=== PATIENT | male | born 1955 | race Caucasian/White ===

== ENCOUNTER 2024-02-05 06:08 | Inpatient (IN) ==
--- NOTE | 2024-01-08 15:49 | PAT Medication Instructions ---
Medication Instructions Date of Service January 08, 2024 Home Medications albuterol sulfate 90 mcg/actuation breath activated powder inhaler,sensor (Proair Digihaler) 2 inh inhalation Q6H PRN shortness of breath ascorbic acid (vitamin C) 500 mg capsule 500 mg PO BID atorvastatin 40 mg tablet (Lipitor) 40 mg PO QPM buprenorphine 8 mg-naloxone 2 mg sublingual tablet 1 tab sublingual TID fluticasone furoate 200 mcg-vilanterol 25 mcg/dose inhalation powder (Breo Ellipta) 1 inh inhalation DAILY ipratropium 0.5 mg-albuterol 3 mg (2.5 mg base)/3 mL nebulization soln 3 ml inhalation Q6H PRN modafinil 200 mg tablet 200 mg PO BID pregabalin 100 mg capsule 100 mg PO TID calcium 600 mg (as carbonate)-vitamin D3 5 mcg (200 unit) capsule 1 cap PO QAM doxycycline hyclate 100 mg capsule 100 mg PO BID duloxetine 60 mg capsule,delayed release 60 mg PO BID furosemide 20 mg tablet 20 mg PO QAM memantine 10 mg tablet 10 mg PO BID metoprolol tartrate 50 mg tablet 50 mg PO BID omeprazole 20 mg capsule,delayed release 20 mg PO BID pregabalin 50 mg capsule 50 mg PO HS rivastigmine tartrate 1.5 mg capsule 1.5 mg PO BID tamsulosin 0.4 mg capsule 0.4 mg PO QPM torsemide 20 mg tablet 20 mg PO DAILY trazodone 50 mg tablet 150 mg PO HS venlafaxine 150 mg capsule,extended release 24 hr 150 mg PO QPM aspirin 325 mg tablet 325 mg PO QAM lutein 1 tab PO QAM potassium chloride 20 mEq tablet,extended release(part/cryst) 20 meq PO BID zinc 50 mg tablet 50 mg PO 3XWK Continue as directed buprenorphine 8 mg-naloxone 2 mg sublingual tablet 1 tab sublingual TID fluticasone furoate 200 mcg-vilanterol 25 mcg/dose inhalation powder (Breo Ellipta) 1 inh inhalation DAILY doxycycline hyclate 100 mg capsule 100 mg PO BID ASK your prescriber and surgeon aspirin 325 mg tablet 325 mg PO QAM STOP taking 2 weeks before surgery lutein 1 tab PO QAM STOP taking 24 hours before surgery rivastigmine tartrate 1.5 mg capsule 1.5 mg PO BID DO NOT take the morning of surgery ascorbic acid (vitamin C) 500 mg capsule 500 mg PO BID modafinil 200 mg tablet 200 mg PO BID calcium 600 mg (as carbonate)-vitamin D3 5 mcg (200 unit) capsule 1 cap PO QAM furosemide 20 mg tablet 20 mg PO QAM torsemide 20 mg tablet 20 mg PO DAILY potassium chloride 20 mEq tablet,extended release(part/cryst) 20 meq PO BID zinc 50 mg tablet 50 mg PO 3XWK Take morning of surgery With a small sip of water, OTHERWISE NOTHING TO EAT OR DRINK AFTER MIDNIGHT: albuterol sulfate 90 mcg/actuation breath activated powder inhaler,sensor (Proair Digihaler) 2 inh inhalation Q6H PRN shortness of breath (use if needed; please bring with you to hospital day of surgery if possible) ipratropium 0.5 mg-albuterol 3 mg (2.5 mg base)/3 mL nebulization soln 3 ml inhalation Q6H PRN (if needed) pregabalin 100 mg capsule 100 mg PO TID duloxetine 60 mg capsule,delayed release 60 mg PO BID memantine 10 mg tablet 10 mg PO BID metoprolol tartrate 50 mg tablet 50 mg PO BID omeprazole 20 mg capsule,delayed release 20 mg PO BID Take evening before surgery albuterol sulfate 90 mcg/actuation breath activated powder inhaler,sensor (Proair Digihaler) 2 inh inhalation Q6H PRN shortness of breath (if needed) ascorbic acid (vitamin C) 500 mg capsule 500 mg PO BID atorvastatin 40 mg tablet (Lipitor) 40 mg PO QPM ipratropium 0.5 mg-albuterol 3 mg (2.5 mg base)/3 mL nebulization soln 3 ml inhalation Q6H PRN (if needed) modafinil 200 mg tablet 200 mg PO BID pregabalin 100 mg capsule 100 mg PO TID duloxetine 60 mg capsule,delayed release 60 mg PO BID memantine 10 mg tablet 10 mg PO BID metoprolol tartrate 50 mg tablet 50 mg PO BID omeprazole 20 mg capsule,delayed release 20 mg PO BID pregabalin 50 mg capsule 50 mg PO HS trazodone 50 mg tablet 150 mg PO HS tamsulosin 0.4 mg capsule 0.4 mg PO QPM venlafaxine 150 mg capsule,extended release 24 hr 150 mg PO QPM potassium chloride 20 mEq tablet,extended release(part/cryst) 20 meq PO BID Other Notes If you have any questions please call us at [phone] or [phone] or [phone] or [phone]
--- NOTE | 2024-01-15 09:06 | Anesthesiology Consultation ---
Date of Service January 15, 2024 Assessment & Plan (1) Encounter for pre-operative examination: - hyperkalemia at 5.7: I called patient's PCP office, [facility] who confirmed they will notify a provider of potassium level today. I also advised we will be requesting overall clearance this time planned for tomorrow including abnormal stress test earlier this year. PAT testing to be faxed to PCP Dr. William Butts with optimization form. - supplemental oxygen dependence: advised by [facility] pulmonology to use 3-4L continuously, patient reports only using 2 L with sleep. 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 Cough: daily cough, small amount sputum in AM - stable. Wheeze: denies. S/s respiratory infection: denies. Using O2 3L via POC w/exertion...Con't Trelegy 200mcg daily; rx updated. Con't albuterol HFA / nebs PRN. If inc'd exacerbations then consider repeat trial daliresp. Con't O2 3-4L via POC or 2L continuous w/exertion, sleep..." - Case discussed in detail with Dr. Piña who advised nothing further needed from pulmonology, agreed with plan as above regarding hyperkalemia. Chart Review Chart Review: Pending: Refer to Additional Notes / Consult section and Patient seen in Pre Admission Testing Teaching & Discussion Pre-Anesthesia Teaching/Discussion Notes: Instructed NPO after midnight before surgery, except medications with 15 cc of water. Medication instructions provided according to the PAT guidelines. History Surgery Operation Date: 02/05/24 07:45 Proposed Procedures p C4-C5 Anterior Cervical Discectomy Fusion with Spinal Cord Monitoring - Gabe Turner, Height/Weight Height: 5 ft 10 in Weight: 123.6 kg Allergies Allergy/AdvReac Type Severity Reaction Status Date / Time vancomycin Allergy Severe Rash Verified 01/08/24 14:32 Medications Home Medications Medication Instructions Recorded Confirmed Last Taken Oxygen Home 03/20/22 04/20/22 Unknown albuterol sulfate 90 mcg/actuation 2 inh inhalation Q6H PRN shortness 03/20/22 01/08/24 Unknown breath activated powder of breath inhaler,sensor (Proair Digihaler) ascorbic acid (vitamin C) 500 mg 500 mg PO BID 03/20/22 01/08/24 Unknown capsule atorvastatin 40 mg tablet (Lipitor) 40 mg PO QPM 03/20/22 01/08/24 Unknown buprenorphine 8 mg-naloxone 2 mg 1 tab sublingual TID 03/20/22 01/08/24 Unknown sublingual tablet fluticasone furoate 200 1 inh inhalation DAILY 03/20/22 01/08/24 Unknown mcg-vilanterol 25 mcg/dose inhalation powder (Breo Ellipta) ipratropium 0.5 mg-albuterol 3 mg 3 ml inhalation Q6H PRN prn 03/20/22 01/08/24 Unknown (2.5 mg base)/3 mL nebulization soln modafinil 200 mg tablet 200 mg PO BID 03/20/22 01/08/24 Unknown pregabalin 100 mg capsule 100 mg PO TID 03/20/22 01/08/24 Unknown calcium 600 mg (as 1 cap PO QAM 03/30/22 01/08/24 Unknown carbonate)-vitamin D3 5 mcg (200 unit) capsule doxycycline hyclate 100 mg capsule 100 mg PO BID 03/30/22 01/08/24 Unknown duloxetine 60 mg capsule,delayed 60 mg PO BID 03/30/22 01/08/24 Unknown release furosemide 20 mg tablet 20 mg PO [facility] 03/30/22 01/08/24 Unknown memantine 10 mg tablet 10 mg PO BID 03/30/22 01/08/24 Unknown metoprolol tartrate 50 mg tablet 50 mg PO BID 03/30/22 01/08/24 Unknown omeprazole 20 mg capsule,delayed 20 mg PO BID 03/30/22 01/08/24 Unknown release pregabalin 50 mg capsule 50 mg PO 03/30/22 01/08/24 Unknown rivastigmine tartrate 1.5 mg 1.5 mg PO BID 03/30/22 01/08/24 Unknown capsule tamsulosin 0.4 mg capsule 0.4 mg PO QPM 03/30/22 01/08/24 Unknown torsemide 20 mg tablet 20 mg PO DAILY 03/30/22 01/08/24 Unknown trazodone 50 mg tablet 150 mg PO HS 03/30/22 01/08/24 Unknown venlafaxine 150 mg 150 mg PO QPM 03/30/22 01/08/24 Unknown capsule,extended release 24 hr aspirin 325 mg tablet 325 mg PO QAM 01/08/24 01/08/24 Unknown lutein 1 tab PO QAM 01/08/24 01/08/24 Unknown potassium chloride 20 mEq 20 meq PO BID 01/08/24 01/08/24 Unknown tablet,extended release(part/cryst) zinc 50 mg tablet 50 mg PO 3XWK 01/08/24 01/08/24 Unknown Past Medical History Medical History (Updated 01/15/24 @ 09:25 by Rosy Luis PA-C) Anxiety Depression Fusion of spine, cervical region Hearing loss hearing aids bilat History of GI bleed (2017) [facility]ed to [facility], "holes in my intestine, I got 39 pints of blood" History of radicular syndrome of lower extremity History of vertebral compression fracture Hypertension controlled, stable per pt Interstitial lung disease Follows with Dr Ortiz [facility]ricks On supplemental oxygen by nasal cannula at night only, 2L Prediabetes Presence of artificial left eye Sleep apnea not currently treated with CPAP or BIPAP per pt due to intolerance Spinal cord stimulator status patient advised to bring analytic programmer Thoracolumbar kyphosis Patient denies h/o stroke, seizures, heart attack, heart failure, blood clots/DVTs or blood transfusions. Exercise / Class Metabolic Activity III < 4 Walking/Shop/Light housework (ambulates with cane, shortness of breath with usual activities ongoing for several years-gradual worsening; denies chest discomfort) Past Surgical History Surgical History (Updated 01/08/24 @ 14:57 by Kathy Pak RN) H/O arthroscopy of left knee H/O foot surgery collapsed right ankle H/O kyphoplasty H/O shoulder surgery right H/O toe surgery H/O wrist surgery right History of bronchoscopy History of cardiac cath ? date, no stents, [facility], patient unsure History of cholecystectomy History of colon resection History of ERCP History of esophagogastroduodenoscopy (EGD) S/P cervical spinal fusion Past Anesthesia History No Hx of Anesthesia Complications and No Family Hx of Anesthesia Complications History of PONV No Hx of PONV and No Hx of Motion Sickness Social History Smoking Status: Former smoker Do You Dip or Chew Tobacco: No Smoking End Date: 2015 Hx Alcohol Use: No Hx Substance Use: No substance use type: does not use Review of Systems Patient denies chest pain, reflux, fever, chills, cough, wheezing, or palpitations. Physical Exam Vital Signs Vitals BP 102/70 P 78 TEMP 98.8 SP02 95% on RA RESP 17 Physical Patient resting comfortably in chair in no acute distress, alert and oriented, responding appropriately throughout visit Full cervical extension range of motion without pain TMD 3.5 finger breadths Mallampati Score 3 Dentition: upper dentures, denies chipped or loose teeth, caps/crowns, implants or bridges Lungs: normal respiratory effort. Good air movement, clear throughout to auscultation, no adventitious breath sounds Cardiac: regular rate and rhythm, no murmurs noted Carotid arteries: negative bruit bilat Lab Results Anesthesia Preop Results Results Anesthesia Widget: WBC 5.17 K/ul (4.8-10.8) 01/15/24 Hgb 12.1 g/dl (14.0-18.0) L 01/15/24 Hct 37.2 % (42.0-52.0) L 01/15/24 Plt 155 K/uL (130-400) 01/15/24 Na 139 mmol/L (136-145) 01/15/24 K 5.7 mmol/L (3.5-5.1) H 01/15/24 Cl 99 mmol/L (98-107) 01/15/24 CO2 33 mmol/L (21-32) H 01/15/24 BUN 26 mg/dl (6-23) H 01/15/24 Creat 0.83 mg/dl (0.6-1.4) 01/15/24 Glucose Level 107 mg/dl (70-99(Fasting)) H 01/15/24 PT 10.8 Seconds (9.0-12.0) 01/15/24 PTT 28 Seconds (21-31) 01/15/24 INR 1.0 (0.9-1.1) 01/15/24 Urine Color Yellow 01/15/24 Urine Appearance Clear (Clear) 01/15/24 Urine pH 5.0 (4.5-7.5) 01/15/24 Urine Specific Criders 1.011 (1.000-1.030) 01/15/24 Urine Protein Negative (Negative) 01/15/24 Urine Glucose (UA) Negative (Negative) 01/15/24 Urine Ketones Negative (Negative) 01/15/24 Urine Blood Negative (Negative) 01/15/24 Urine Nitrite Negative (Negative) 01/15/24 Urine Bilirubin Negative (Negative) 01/15/24 Urine Urobilinogen Negative (Negative) 01/15/24 Urine Leukocyte Esterase Negative (Negative) 01/15/24 Blood Type B Positive 01/15/24 Antibody Screen NEGATIVE 01/15/24 Testing Electrocardiogram Date: 01/15/24 Poor data quality Sinus rhythm with 1st degree AV block, rate 74 bpm Chest X-Ray Date: 01/15/24 1. Prominence of bronchovascular markings in bilateral lung arvizu-rule out underlying bronchitis/interstitial lung disease. 2. Elevation of left dome of diaphragm is seen with mild blunting of left costophrenic angle-probably representing eventration. 3. Arteriosclerotic changes in the thoracic aorta. Echocardiogram Date: 07/23/23 EF 55-59% Normal LV wall motion Moderate cLVH Mild tricuspid regurgitation Grade I diastolic dysfunction Stress Test Date: 04/15/23 Negative for ischemia Small area of mild intensity fixed perfusion defect of the basal to mid inferolateral wall, distal anteroseptal wall. Possible attenuation or prior infarction.
[2024-02-05] MEDS: GABAPENTIN 300 MG CAP PO SCH (07:01)
[2024-02-05] MEDS: LR 60ML/HR IV SCH (07:01)
[2024-02-05] MEDS: ACETAMINOPHEN 500 MG TAB PO SCH (07:01)
[2024-02-05] MEDS: CeleBREX 200 MG CAP PO SCH (07:01)
[2024-02-05] MEDS: LACTATED RINGER'S 1,000 ML IV SCH (07:01)
[2024-02-05] MEDS ORDERED: MIDAZOLAM HCL 1 MG/ML 2ML VIAL ONE (07:07)
[2024-02-05] MEDS ORDERED: DEXAMETHASONE SOD INJ 4 MG/ML VIAL ONE (07:07)
[2024-02-05] MEDS ORDERED: PROPOFOL IV EMULSION 10 MG/ML 20 ML VIAL IV ONE ×2 (07:07→07:09)
[2024-02-05] MEDS ORDERED: ONDANSETRON INJ 2 MG/ML 2 ML VIAL ONE (07:07)
[2024-02-05] MEDS ORDERED: ROCURONIUM BROMIDE 10 MG/ML 5 ML VIAL IV ONE ×2 (07:07→07:12)
[2024-02-05] MEDS ORDERED: GLYCOPYRROLATE 0.2 MG/ML VIAL ONE ×2 (07:07→07:10)
[2024-02-05] MEDS ORDERED: LIDOCAINE 2% 2 ML VIAL/AMP(20MG/ML) INFIL ONE (07:07)
[2024-02-05] MEDS ORDERED: fentaNYL citrate PF 100 MCG/2 ML VIAL ONE ×2 (07:07→09:23)
[2024-02-05] MEDS ORDERED: PROMETHAZINE HCL 6.25 MG in SODIUM CHLORIDE 0.9% 50 ML IV PRN (07:35)
[2024-02-05] MEDS ORDERED: ePHEDrine sulfate 50 MG/ML AMP IV PRN (07:35)
[2024-02-05] MEDS ORDERED: ATROPINE SULFATE 0.1 MG/ML 10ML SYR IV PRN (07:35)
[2024-02-05] MEDS ORDERED: ONDANSETRON INJ 2 MG/ML 2 ML VIAL IV PRN ×2 (07:35→11:29)
--- NOTE | 2024-02-05 07:43 | History & Physical Bridge Note ---
Date of Service February 05, 2024 History & Physical Bridge Note I have examined the patient, reviewed the History & Physical and in the interval since the performance of the History & Physical I have noted the following changes of clinical significance: no changes noted
--- NOTE | 2024-02-05 07:46 | History & Physical Report ---
Date of Service February 05, 2024 Assessment & Plan (1) Herniation of cervical intervertebral disc with radiculopathy: Plan: Anterior cervical discectomy and fusion C4-C5 History of Present Illness Chief Complaint: Neck and arm pain Primary Care Provider: William Butts This is a 68-year-old male who presents with chronic persistent neck and arm pain and failing course of nonoperative care is here for surgical invention. Allergies Allergy/AdvReac Type Severity Reaction Status Date / Time vancomycin Allergy Severe Rash Verified 02/05/24 06:35 Home Medications Medication Instructions Recorded Confirmed Type Oxygen Home 03/20/22 02/05/24 History albuterol sulfate 90 mcg/actuation 2 inh inhalation Q6H PRN shortness 03/20/22 02/05/24 History breath activated powder of breath inhaler,sensor (Proair Digihaler) ascorbic acid (vitamin C) 500 mg 500 mg PO BID 03/20/22 02/05/24 History capsule atorvastatin 40 mg tablet (Lipitor) 40 mg PO QPM 03/20/22 02/05/24 History buprenorphine 8 mg-naloxone 2 mg 1 tab sublingual TID 03/20/22 02/05/24 History sublingual tablet fluticasone furoate 200 1 inh inhalation DAILY 03/20/22 02/05/24 History mcg-vilanterol 25 mcg/dose inhalation powder (Breo Ellipta) ipratropium 0.5 mg-albuterol 3 mg 3 ml inhalation Q6H PRN prn 03/20/22 02/05/24 History (2.5 mg base)/3 mL nebulization soln modafinil 200 mg tablet 200 mg PO BID 03/20/22 02/05/24 History pregabalin 100 mg capsule (Lyrica) 100 mg PO TID 03/20/22 02/05/24 History calcium 600 mg (as 1 cap PO QAM 03/30/22 02/05/24 History carbonate)-vitamin D3 5 mcg (200 unit) capsule doxycycline hyclate 100 mg capsule 100 mg PO BID 03/30/22 02/05/24 History (Vibramycin) duloxetine 60 mg capsule,delayed 60 mg PO BID 03/30/22 02/05/24 History release (Cymbalta) furosemide 20 mg tablet 20 mg PO QAM 03/30/22 02/05/24 History memantine 10 mg tablet 10 mg PO BID 03/30/22 02/05/24 History metoprolol tartrate 50 mg tablet 50 mg PO BID 03/30/22 02/05/24 History omeprazole 20 mg capsule,delayed 20 mg PO BID 03/30/22 02/05/24 History release pregabalin 50 mg capsule 100 mg PO HS 03/30/22 02/05/24 History rivastigmine tartrate 1.5 mg 1.5 mg PO BID 03/30/22 02/05/24 History capsule tamsulosin 0.4 mg capsule 0.4 mg PO QPM 03/30/22 02/05/24 History torsemide 20 mg tablet (Soaanz) 20 mg PO DAILY 03/30/22 02/05/24 History trazodone 50 mg tablet 150 mg PO HS 03/30/22 02/05/24 History venlafaxine 150 mg 150 mg PO QPM 03/30/22 02/05/24 History capsule,extended release 24 hr (Effexor XR) aspirin 325 mg tablet 325 mg PO QAM 01/08/24 02/05/24 History lutein 1 tab PO QAM 01/08/24 02/05/24 History potassium chloride 20 mEq 20 meq PO BID 01/08/24 02/05/24 History tablet,extended release(part/cryst) zinc 50 mg tablet 50 mg PO 3XWK 01/08/24 02/05/24 History Past Med/Surg History Problem List (Updated 02/05/24 @ 07:44 by Gabe Turner DO) Herniation of cervical intervertebral disc with radiculopathy Encounter for pre-operative examination History of vertebral compression fracture Thoracolumbar kyphosis History of radicular syndrome of lower extremity Spinal cord stimulator status Lumbosacral spondylosis COPD (chronic obstructive pulmonary disease) Depression Medical History (Updated 02/05/24 @ 07:44 by Gabe Turner DO) Hearing loss hearing aids bilat Sleep apnea not currently treated with CPAP or BIPAP per pt due to intolerance History of radicular syndrome of lower extremity Thoracolumbar kyphosis Prediabetes Anxiety Depression History of GI bleed (2017) lifeflighted to [facility], "holes in my intestine, I got 39 pints of blood" History of vertebral compression fracture Presence of artificial left eye Spinal cord stimulator status patient advised to bring software programmer On supplemental oxygen by nasal cannula at night only, 2L Interstitial lung disease Follows with Dr Ortiz Hendricks Hypertension controlled, stable per pt Fusion of spine, cervical region Surgical History History of colon resection History of cardiac cath ? date, no stents, [facility], patient unsure H/O kyphoplasty S/P cervical spinal fusion H/O shoulder surgery right History of cholecystectomy H/O toe surgery H/O foot surgery collapsed right ankle H/O wrist surgery right H/O arthroscopy of left knee History of ERCP History of esophagogastroduodenoscopy (EGD) History of bronchoscopy Social History Smoking Status: Former smoker Tobacco Type: Smokeless Tobacco (Dip or Chew) Age Started Using Tobacco: 15; Age Quit Using Tobacco: 59; Smoking End Date: 2015; Second Hand Exposure: No; Do You Dip or Chew Tobacco: No; Tobacco Cessation Education Requested by Patient: No Hx Alcohol Use: No Hx Substance Use: No Preferred Language: Faroese Admissions Dean Required: No Beliefs That Will Affect Care: None marital status: Current Living Situation: Spouse current occupational status: retired Other Information That Helps Us Care for You: No Feels Safe at Home: Yes Safety Concerns: Feels Safe At This Time Assistive Devices: Cane, Denture - Upper and Hearing Aid - Bilateral Physical Exam Physical Exam: Patient is alert and oriented heart regular rhythm lungs clear Results & Data Results & Data Vital Signs (Past 12 Hours) Vital Signs Temp Pulse Resp BP Pulse Ox O2 Del Method O2 Flow Rate 02/05/24 06:52 93 Nasal Cannula 2 02/05/24 06:52 Nasal Cannula 2 02/05/24 06:51 36.7 C 78 18 100/58 L 89 L Room Air
[2024-02-05] MEDS: ceFAZolin 3000MG 3,000 MG/72.5 ML BAG IV SCH (08:01)
[2024-02-05] MEDS ORDERED: PHENYLEPHRINE 100MCG/ML 5ML SYR ONE (08:36)
[2024-02-05] MEDS ORDERED: PHENYLEPHRINE HCL 10 MG/ML VIAL ONE (08:36)
[2024-02-05] MEDS ORDERED: ePHEDrine sulfate 50 MG/5 ML SYR ONE (08:42)
[2024-02-05] MEDS: FLOSEAL HEMOSTATIC MATRIX 10ML TOP ONE (09:27)
[2024-02-05] MEDS ORDERED: SUGAMMADEX SODIUM 200 MG/2 ML VIAL IV ONE (09:33)
[2024-02-05] MEDS: ceFAZolin 330 MG/ML 1 GM VIAL ONE (09:35)
--- NOTE | 2024-02-05 09:43 | Operative Report ---
Post Operative Report Pre & Post Diagnosis Operation Date: 02/05/24 07:45 Pre-Op Diagnosis: Herniation of cervical intervertebral disc with radiculopathy Post-Op Diagnosis: Herniation of cervical intervertebral disc with radiculopathy I identified the patient and participated in the time-out.: Yes Procedure Operation Date: 02/05/24 07:45 Actual Procedures 1. Anterior cervical discectomy with bilateral foraminotomies C4-C5. #2 anterior cervical arthrodesis C4-C5. #3 placement of globus 8 mm coalition cage filled with os design bone graft C4-C5 Surgeon Gabe Turner, DO Commercial Hvac Service Technician None Estimated Blood Loss 25 Findings See Below The patient is 5 foot 11 weighing over 122 kg with a BMI in excess of 37. The patient's body was did contribute to significant technical difficulty with positioning exposure and the procedure itself. This at least 50% increased operative time. Specimens None Indications This is a 68-year-old male presents manage diagnosis of failed course of nonoperative care is here for surgical invention. Description of Procedure Patient was met with identified informed consent obtained. Patient was then taken to the operative suite underwent the patient placed in spine position on the Thanh table with head Meza hunt. All bony prominences well-padded eyes inspected to ensure no external pressure placed upon the. This point the anterior cervical spine was prepped and draped in a sterile fashion. The assistance of fluoroscopy defy the C3-4 C5 disc space and a transverse incision was placed on the right anterior aspect of the cervical spine overlying this region. Blunt dissection with assistance of bipolar cautery is performed to expose the anterior cervical spine at C4-C5. A complete discectomy C4-5 was performed out to the uncovertebral's bilaterally. [place] distraction pins were utilized to assist in visualization. Removed all posterior annular fibers longitudinal limit bilateral foraminotomies performed. Endplates burred to subcortical bleeding bone and a 8 mm coalition cage filled with os design bone graft tapped in position and screwed in place with fluoroscopic visualization. Distracting apparatus was removed. The incision was lea irrigated explored to ensure no damage surrounding structures remaining bleeding. 10 round GUALBERTO drain inserted. The incision was then closed with 2 Vicryl the fascia 4 Monocryl for final closure. Steri-Strips dressing placed. Patient waken taken to PACU in stable condition. Please note spinal cord monitoring was utilized at the procedure no changes noted. Im ordering 10 grams of Triple [place] Collagen Powder ([facility] [id number]) to treat an incision wound that was caused by a spine procedure. The incision is approximately 2 cm(W) x 4 cm(L) into the joint (D) in size and is a full thickness wound. Triple [place] collagen comes in 1 gram packets so 10 packets were ordered. Given the size of the wound, with light to moderate exudate I chose to order a 10 day supply. The patient will be provided instructions for proper application of the collagen wound kit. The patient will be asked to apply the collagen powder daily and then cover it with sterile dressings dispensed. Collagen was selected as I expect the collagen to attract monocytes and fibroblasts, act as a sacrificial substrate for MMPs, and ultimately proved a matrix for tissue and vessel growth. The collagen will act as a primary dressing in this scenario. It is medically necessary for proper healing of these wounds to improve bioavailability and contact with each wound surface, this is also to help prevent infection of wounds and promote healing ultimately leading to a better healing outcome and limit the risk of infection. I attest to the content of the Intraoperative Record and any orders documented therein. Any exceptions are noted below.
[2024-02-05] MEDS: fentaNYL citrate PF 100 MCG/2 ML VIAL IV PRN (10:10)
--- NOTE | 2024-02-05 10:31 | Anesthesiology Progress Note ---
Date of Service February 05, 2024 Anesthesia Post Procedure Vital Signs Vital Signs: Temp Pulse Resp BP Pulse Ox O2 Del Method O2 Flow Rate 02/05/24 06:52 93 Nasal Cannula 2 02/05/24 06:52 Nasal Cannula 2 02/05/24 06:51 36.7 C 78 18 100/58 L 89 L Room Air Pain Intensity Back: Pain Intensity: 7 Bilateral Shoulder: Pain Intensity: 7 Transfer of Care Handoff Completed per policy Notes Mental Status: alert / awake / arousable Patient Amnestic to Procedure: Yes Nausea / Vomiting: adequately controlled Pain: adequately controlled Airway Patency, RR, SpO2: stable & adequate BP & HR: stable & adequate Hydration State: stable & adequate Anesthetic Complications: no major complications apparent
[2024-02-05] MEDS ORDERED: ALBUTEROL HFA 8 GM INHALER INH ONE (10:51)
[2024-02-05] MEDS ORDERED: dexAMETHasone 8 MG in SYRINGE 0 ML IV PRN (11:29)
[2024-02-05] MEDS ORDERED: MAGNESIUM HYDROXIDE SUSP 30 ML UDC PO PRN (11:29)
[2024-02-05] MEDS ORDERED: diphenhydrAMINE Capsule 25 MG CAP PO PRN (11:29)
[2024-02-05] MEDS ORDERED: LORazepam 0.5 MG TAB PO PRN (11:29)
[2024-02-05] MEDS ORDERED: NALOXONE HCL 0.4 MG/1 ML VIAL/CARP IV PRN (11:29)
[2024-02-05] MEDS ORDERED: bisacodyL 10 MG SUPP PR PRN (11:29)
[2024-02-05] MEDS ORDERED: PROMETHAZINE 12.5 MG/50.5 ML BAG IV PRN (11:29)
[2024-02-05] MEDS ORDERED: ONDANSETRON 4 MG OD TAB PO PRN (11:29)
[2024-02-05] MEDS ORDERED: SOD PHOSPHATE/SOD BIPHOSPHATE ENEMA 132 ML BTL PR PRN (11:29)
[2024-02-05] MEDS ORDERED: LORazepam 2 MG/1 ML VIAL IV PRN (11:29)
[2024-02-05] MEDS ORDERED: FAMOTIDINE 20 MG TAB PO PRN (11:29)
[2024-02-05] MEDS ORDERED: hydrOXYzine HCl 25 MG TAB PO PRN (11:29)
[2024-02-05] MEDS ORDERED: RACEPINEPHRINE 2.25% NEBU SOLN 0.5 ML VIAL INH PRN (11:29)
[2024-02-05] MEDS ORDERED: traMADol HCL 50 MG TABLET PO PRN (11:29)
[2024-02-05] MEDS ORDERED: ALUMINUM/MAGNESIUM SUSP 30 ML UDC PO PRN (11:29)
[2024-02-05] MEDS ORDERED: ALBUT/IPRATROP 3MG/0.5MG NEB 3 ML VIAL INH PRN (11:29)
[2024-02-05] MEDS ORDERED: METOCLOPRAMIDE HCL INJ 5 MG/ML 2 ML VIAL IV PRN (11:29)
[2024-02-05] MEDS ORDERED: ACETAMINOPHEN 1,000 MG/100 ML VIAL IV PRN (11:29)
[2024-02-05] MEDS ORDERED: DO NOT ADMINISTER FLU VACCINE PRN (11:29)
[2024-02-05] MEDS ORDERED: HYDROmorphone INJ 1 MG/ML SYRINGE IV PRN (11:29)
[2024-02-05] MEDS ORDERED: DO NOT ADMINISTER PNEUMOCOCCAL VACCINE PRN (11:29)
--- NOTE | 2024-02-05 12:22 | Hospitalist Consultation ---
Date of Consultation February 05, 2024 Assessment & Plan (1) Herniation of cervical intervertebral disc with radiculopathy: S/p anterior cervical discectomy with fusion of C4 and C5 by Dr. Turner - Pain management, VTE PPx, and bowel regimen per surgical team - Pre-op H&H relatively stable, renal function stable, EKG Sinus w/ first degree block - CBC, BMP a.m. added Appreciate ongoing support from surgical team (2) COPD (chronic obstructive pulmonary disease): H/o COPD; follows with Dr. Alcantar at [facility]; Denying SOB or cough - Stable currently, on 2L NC- wean as patient tolerates until back to baseline - On 2L O2 nightly at home - No evidence of exacerbation today - Continue home meds albuterol inhaler as needed SOB, fluticasone inhaler, ipratropium nebulizer (3) Chronic pain: H/o chronic pain 2/2 orthopedic concerns; managed by pain management - Duloxetine 60 mg p.o. twice daily, pregabalin 100 mg p.o. 3 times daily and 100 mg p.o. at bedtime - Currently on oxycodone 5 mg p.o. nightly as needed pain; see #4 - Bowel regimen on board (4) Opioid dependence in remission: H/o dependence - Being managed with Suboxone 3 times daily; takes as prescribed - Advise caution with escalation of pain management but ultimately at discretion of surgical team (5) CAD (coronary artery disease): Most recent cardiology visit 01/30/2024 for clearance; has been ~ 3 years between this visit and most recent - Currently asymptomatic without chest pain or palpitations - Preop EKG sinus w/ 1st degree block - Nuclear stress test 04/2023- negative for ischemia, small area of small intensity fixed defect basal to mid inferior lateral wall, distal anterior septal wall (possible attenuation or prior infarct) - Echo 07/2023- normal LV size, motion, systolic function, EF 55 to 59%, AV sclerosis without stenosis, mild TR - ASA 325 mg every day- "to keep my blood thin" (6) Depression with anxiety: H/o MDD + anxiety; follows with PCP for managemment - Stable, per patient - Continue on the duloxetine 150 mg nightly, trazodone 150 mg p.o. at bedtime (7) Hypertension: Stable, per patient - BP stable today - Continue metoprolol 50 mg p.o. twice daily (8) Neurocognitive disorder: Per patient - Continue Memantine 10mg BID + Rivastigmine 1.5 mg BID Plan HLD- atorvastatin 40 mg nightly GERD-omeprazole 20 mg twice daily BPH- tamsulosin 0.4 mg nightly Torsemide 20mg every morning Dispo: Pending clinical improvement s/p surgical intervention Diet: Heart healthy VTE Prophylaxis: Per sx team Code: Full Supervising Physician Co-Signing Physician Notes I personally saw and examined the patient. I independently reviewed the labs, imaging, problem list, medication list, past medical history and family history. I verified all lemos points and agree with Kenna Livingston PA-C with the following exceptions and/or additions: 68 year old POD#0 Anterior cervical discectomy with bilateral foraminotomies C4- 5. No acute question or concerns of the patient. O/E HS RRR, no murmurs, Chest CTAB, Abdo SNT A/P VTE / bowel management per primary ortho spine team Opiate use disorder - may need higher doses of opiates due to being on 24mg/day buprenorphine. Discussed reducing the dose of buprenorphine if unable to get pain under control but he wants to remain on his current dose for now as recommended by his outpatient provider GERD - switch omeprazole for pantoprazole per hospital pharmacy Dementia - continue rivastigmine and memantine Otherwise as above History of Present Illness Reason for Consultation: Medical management Requesting Physician: Gabe Turner DO Attending Physician: Gabe Turner DO History of Present Illness Patient is 68-year-old male s/p anterior cervical discectomy with fusion of C4 and C5, being evaluated for medical management. PMHx severe COPD (2L O2 nightly), CAD, HTN, Chris (not tolerating CPAP), depression, anxiety, T2DM, and history of opioid dependence. Patient states only complaint at this time is the pain that he is feeling. Otherwise, resting comfortably and just feeling tired. Patient denies chest pain, shortness of breath, palpitations, or abdominal pain, N/V/D/C, LUTS, or numbness/tingling. Patient confirms that he takes Suboxone dosing as appropriate. Has no questions or concerns at this time. Please see Dr. Dang's attestation for adjustments/additions to treatment plan. Allergies Allergy/AdvReac Type Severity Reaction Status Date / Time vancomycin Allergy Severe Rash Verified 02/05/24 06:35 Home Medications Medication Instructions Recorded Confirmed Type Oxygen Home 03/20/22 02/05/24 History albuterol sulfate 90 mcg/actuation 2 inh inhalation Q6H PRN shortness 03/20/22 02/05/24 History breath activated powder of breath inhaler,sensor (Proair Digihaler) ascorbic acid (vitamin C) 500 mg 500 mg PO BID 03/20/22 02/05/24 History capsule atorvastatin 40 mg tablet (Lipitor) 40 mg PO QPM 03/20/22 02/05/24 History buprenorphine 8 mg-naloxone 2 mg 1 tab sublingual TID 03/20/22 02/05/24 History sublingual tablet fluticasone furoate 200 1 inh inhalation DAILY 03/20/22 02/05/24 History mcg-vilanterol 25 mcg/dose inhalation powder (Breo Ellipta) ipratropium 0.5 mg-albuterol 3 mg 3 ml inhalation Q6H PRN prn 03/20/22 02/05/24 History (2.5 mg base)/3 mL nebulization soln modafinil 200 mg tablet 200 mg PO BID 03/20/22 02/05/24 History pregabalin 100 mg capsule (Lyrica) 100 mg PO TID 03/20/22 02/05/24 History calcium 600 mg (as 1 cap PO QAM 03/30/22 02/05/24 History carbonate)-vitamin D3 5 mcg (200 unit) capsule doxycycline hyclate 100 mg capsule 100 mg PO BID 03/30/22 02/05/24 History (Vibramycin) duloxetine 60 mg capsule,delayed 60 mg PO BID 03/30/22 02/05/24 History release (Cymbalta) furosemide 20 mg tablet 20 mg PO QAM 03/30/22 02/05/24 History memantine 10 mg tablet 10 mg PO BID 03/30/22 02/05/24 History metoprolol tartrate 50 mg tablet 50 mg PO BID 03/30/22 02/05/24 History omeprazole 20 mg capsule,delayed 20 mg PO BID 03/30/22 02/05/24 History release pregabalin 50 mg capsule 100 mg PO HS 03/30/22 02/05/24 History rivastigmine tartrate 1.5 mg 1.5 mg PO BID 03/30/22 02/05/24 History capsule tamsulosin 0.4 mg capsule 0.4 mg PO QPM 03/30/22 02/05/24 History torsemide 20 mg tablet (Soaanz) 20 mg PO DAILY 03/30/22 02/05/24 History trazodone 50 mg tablet 150 mg PO HS 03/30/22 02/05/24 History venlafaxine 150 mg 150 mg PO QPM 03/30/22 02/05/24 History capsule,extended release 24 hr (Effexor XR) aspirin 325 mg tablet 325 mg PO QAM 01/08/24 02/05/24 History lutein 1 tab PO QAM 01/08/24 02/05/24 History potassium chloride 20 mEq 20 meq PO BID 01/08/24 02/05/24 History tablet,extended release(part/cryst) zinc 50 mg tablet 50 mg PO 3XWK 01/08/24 02/05/24 History oxycodone 5 mg tablet 5 mg PO Q6H PRN pain #20 tabs 02/05/24 Rx Patient History Medical History Hearing loss hearing aids bilat Sleep apnea not currently treated with CPAP or BIPAP per pt due to intolerance History of radicular syndrome of lower extremity Thoracolumbar kyphosis Prediabetes Anxiety Depression History of GI bleed (2016) [facility], "holes in my intestine, I got 39 pints of blood" History of vertebral compression fracture Presence of artificial left eye Spinal cord stimulator status patient advised to bring asp net programmer On supplemental oxygen by nasal cannula at night only, 2L Interstitial lung disease Follows with Dr Ortiz [facility] Hypertension controlled, stable per pt Fusion of spine, cervical region Surgical History History of colon resection History of cardiac cath ? date, no stents, [facility], patient unsure H/O kyphoplasty S/P cervical spinal fusion H/O shoulder surgery right History of cholecystectomy H/O toe surgery H/O foot surgery collapsed right ankle H/O wrist surgery right H/O arthroscopy of left knee History of ERCP History of esophagogastroduodenoscopy (EGD) History of bronchoscopy Social History Smoking Status: Former smoker Tobacco Type: Smokeless Tobacco (Dip or Chew) Age Started Using Tobacco: 15; Age Quit Using Tobacco: 59; Smoking End Date: 2015; Second Hand Exposure: No; Do You Dip or Chew Tobacco: No; Tobacco Cessation Education Requested by Patient: No Hx Alcohol Use: No Hx Substance Use: No Preferred Language: Uzbek Communication Ability: Effective Scrap Iron Cutter Required: No Beliefs That Will Affect Care: None marital status: Current Living Situation: Spouse current occupational status: retired Other Information That Helps Us Care for You: No Feels Safe at Home: Yes Safety Concerns: Feels Safe At This Time Assistive Devices: Cane, Denture - Upper, Hearing Aid - Bilateral and Walker Review of Systems Review of Systems: All systems reviewed & are unremarkable except as noted in Subjective Physical Exam Physical Exam: General: No acute distress Skin: Warm and dry Head: Normocephalic, atraumatic; in neck brace Eyes: PERRL, conjunctivae clear, sclera non-icteric ENT: External ear and ear canal without swelling; nose atraumatic; fine dentition Neck: Supple Cardio: RRR, systolic murmur, no G/R, S1 and S2 normal Resp: No respiratory distress, Lungs CTA in all lobes bilaterally, no wheezes, rales, or rhonchi Abdomen: Soft, symmetric, nontender;No masses or hepatosplenomegaly; Bowel sounds normoactive MSK: No deformities; pulses palpable and equal; no edema. Neuro: Awake, alert; Sensation intact bilaterally; CN intact Psych: Appropriate mood and affect Drains in place, draining appropriately. Results & Data Results & Data Vital Signs (Past 12 Hours) Vital Signs Temp Pulse Pulse Resp BP Pulse Ox Pulse Ox 02/05/24 12:08 36.5 C 89 20 131/77 94 02/05/24 12:05 93 02/05/24 11:45 89 20 94 02/05/24 11:30 02/05/24 11:30 36.4 C L 80 20 113/75 93 02/05/24 11:20 93 02/05/24 11:05 36.5 C 86 18 139/83 94 02/05/24 10:55 79 17 142/82 H 92 02/05/24 10:45 86 17 127/83 94 02/05/24 10:35 80 29 H 135/33 L 94 02/05/24 10:25 79 21 133/88 92 02/05/24 10:15 85 19 132/84 90 02/05/24 10:05 80 16 132/82 91 02/05/24 09:59 36.5 C 78 23 145/82 H 91 02/05/24 06:52 93 02/05/24 06:52 02/05/24 06:51 36.7 C 78 18 100/58 L 89 L O2 Del Method O2 Del Method O2 Flow Rate O2 Flow Rate 02/05/24 12:08 Nasal Cannula 2 02/05/24 12:05 Nasal Cannula 2 02/05/24 11:45 Nasal Cannula 2 02/05/24 11:30 Nasal Cannula 2 02/05/24 11:30 Nasal Cannula 3 02/05/24 11:20 Nasal Cannula 2 02/05/24 11:05 Nasal Cannula 3 02/05/24 10:55 Nasal Cannula 3 02/05/24 10:45 Nasal Cannula 3 02/05/24 10:35 Nasal Cannula 3 02/05/24 10:25 Nasal Cannula 3 02/05/24 10:15 Nasal Cannula 3 02/05/24 10:05 Oxymask 10 02/05/24 09:59 Oxymask 10 02/05/24 06:52 Nasal Cannula 2 02/05/24 06:52 Nasal Cannula 2 02/05/24 06:51 Room Air PG Care Time/CCT Total # of Minutes Spent Total Time Spent with Patient: Total time spent is greater than 50% in coordination of care (as documented) at patient's floor/unit and/or counseling patient: Coding Level of Care Code 57864 IN/OBS CONSULT LVL 4,60M Diagnoses Herniation of cervical intervertebral disc with radiculopathy M50.10 COPD (chronic obstructive pulmonary disease) J44.9 Chronic pain G89.29 Opioid dependence in remission F11.21 CAD (coronary artery disease) I25.10 Depression with anxiety F41.8 Hypertension I10 Neurocognitive disorder R41.9 Time Spent (min) 60
[2024-02-05] MEDS ORDERED: ALBUTEROL HFA 8 GM INHALER INH PRN (12:28)
[2024-02-05] MEDS: ZINC SULFATE 220 MG CAPSULE PO SCH (13:13)
[2024-02-05] MEDS: PREGABALIN 100 MG CAP PO SCH ×2 (13:13→21:52)
--- NOTE | 2024-02-05 13:24 | Fluoroscopy Report ---
FL cervical 2-3V CLINICAL HISTORY: C4-C5 ACDF COMPARISON STUDY: None. FLUOROSCOPY TIME: 51.2 seconds. Ka,r: 5.58 mGy FLUOROSCOPIC IMAGES: 2 FINDINGS: Fluoroscopy was provided during C4-C5 anterior discectomy and fusion. Previous C5-C7 anteri or discectomy and fusion is present. Hardware is intact. Linear radiodensity on the initial image is not present on the subsequent image. IMPRESSION: Fluoroscopy provided during C4-C5 anterior discectomy and fusion. ACT 112: Negative or not required by law. Electronically signed by: Cb Ray M.D. 02/05/2024 1:22 PM
[2024-02-05] MEDS: HYDROmorphone INJ 0.5 MG/0.5 ML SYR IV ONE (13:32)
[2024-02-05] MEDS: ceFAZolin 2000MG 2,000 MG/15 ML SYR IV SCH (15:33)
[2024-02-05] MEDS: BUPRENORPHINE/NALOXONE 8/2 MG TAB SL SCH (15:33)
[2024-02-05] MEDS: HYDROmorphone INJ 0.5 MG/0.5 ML SYR IV PRN (17:48)
[2024-02-05] MEDS: POTASSIUM CHLORIDE CRTAB 20 MEQ TABCR PO SCH (21:51)
[2024-02-05] MEDS: modafiniL 100 MG TAB PO SCH (21:51)
[2024-02-05] MEDS: oxyCODONE HCL IR 5 MG TAB (IMMEDIATE RELEASE) PO PRN (21:52)
[2024-02-05] MEDS: DOCUSATE SODIUM/SENNA 50/8.6MG TAB PO SCH (21:52)
[2024-02-05] MEDS: traZODone HCL 50 MG TAB PO SCH (21:52)
[2024-02-05] MEDS: DOXYCYCLINE HYCLATE 100 MG CAP PO SCH (21:53)
[2024-02-05] MEDS: DULoxetine HCL 60 MG CAP PO SCH (21:53)
[2024-02-05] MEDS: ATORVASTATIN 40 MG TAB PO SCH (21:54)
[2024-02-05] MEDS: PANTOprazole 40 MG TAB PO SCH (21:54)
[2024-02-05] MEDS: ASCORBIC ACID 500 MG TAB PO SCH (21:54)
[2024-02-05] MEDS: MEMANTINE HCL 10 MG TAB PO SCH (21:54)
[2024-02-05] MEDS: TAMSULOSIN HCL 0.4 MG CAP PO SCH (21:55)
[2024-02-05] MEDS: METOPROLOL TARTRATE 50 MG TAB PO SCH (21:55)
[2024-02-05] MEDS: RIVASTIGMINE TARTRATE 1.5 MG CAP PO SCH (21:55)
[2024-02-05] MEDS: VENLAFAXINE HCL XR 150 MG CAPXR PO SCH (21:56)
[2024-02-06] MEDS: POLYETHYLENE (MIRALAX) 17 GM PACK PO SCH (05:42)
[2024-02-06 06:47] LABS: Basophils # (auto) 0.01 K/uL (0.00-0.20); Basophils % (auto) 0.1 %; Eosinophils # (auto) 0.02 K/uL (0.00-0.50); Eosinophils % (auto) 0.2 %; Hematocrit (blood only) 37.6 % (42.0-52.0); Hemoglobin 12.2 g/dl (14.0-18.0); Immature Granulocytes # (auto) 0.05 K/uL (0.01-0.20); Immature Granulocytes % (auto) 0.5 %; Lymphocytes # (auto) 1.55 K/uL (1.20-3.40); Mean Corpuscular Hemoglobin 30.8 pg (25.0-34.0); Mean Corpuscular Hgb Conc 32.4 g/dL (32.0-36.0); Mean Corpuscular Volume 94.9 fL (80.0-100.0); Mean Platelet Volume 9.1 fL (9.4-12.4); Monocytes # (auto) 0.68 K/uL (0.11-0.59); Monocytes % (auto) 6.6 %; Neutrophils # (auto) 8.02 K/uL (1.40-6.50); Neutrophils % (auto) 77.6 %; Platelet Count 161 K/uL (130-400); RDW Coefficient of Variation 12.5 % (11.5-14.5); RDW Standard Deviation 43.8 fL (36.4-46.3); Red Blood Count 3.96 M/uL (4.70-6.10); White Blood Count 10.33 K/ul (4.8-10.8)
[2024-02-06 07:13] LABS: Albumin Globulin Ratio 1.2 (0.9-2); Albumin Level 3.3 gm/dl (3.4-5.0); BUN Creatinine Ratio 26.5 (10-20); Bilirubin,Total 0.3 mg/dl (0.2-1.0); Calcium 8.9 mg/dl (8.6-10.3); Creatinine Clr Calc Pharmacy 189.9 ml/min; Globulin 2.7 gm/dl (2.5-4.0); Potassium 4.4 mmol/L (3.5-5.1)
[2024-02-06] MEDS: ACETAMINOPHEN 500 MG TAB PO PRN (07:25)
[2024-02-06] MEDS: ASPIRIN 325 MG ECTAB PO SCH (07:31)
[2024-02-06] MEDS: TORSEMIDE 20 MG TAB PO SCH (07:32)
[2024-02-06] MEDS: dexAMETHasone 6 MG in SYRINGE 0 ML IV SCH (07:33)
--- NOTE | 2024-02-06 08:15 | Hospitalist Progress Note ---
Date of Service February 06, 2024 Assessment & Plan (1) Herniation of cervical intervertebral disc with radiculopathy: Plan: S/p anterior cervical discectomy with fusion of C4 and C5 by Dr. Turenr on 02/04 - Pain management, VTE PPx, and bowel regimen per surgical team - Post-op H&H relatively stable, renal function stable, EKG Sinus w/ first degree block - Appreciate ongoing support from surgical team (2) COPD (chronic obstructive pulmonary disease): Plan: H/o COPD; follows with Dr. Alcantar at [facility]; Denying SOB or cough - On 2L O2 nightly at home - Continue home meds albuterol inhaler as needed SOB, fluticasone inhaler, ipratropium nebulizer - Notified by respiratory therapy that O2 sats decreased with ambulation > Two-step ordered and patient found to need 2L at rest and 3 L with ambulation -- script signed and provided to case management - Follow-up with pulm as scheduled/as needed (3) Chronic pain: Plan: H/o chronic pain 2/2 orthopedic concerns; managed by pain management - Duloxetine 60 mg p.o. twice daily, pregabalin 100 mg p.o. 3 times daily and 100 mg p.o. at bedtime - Currently on oxycodone 5 mg p.o. nightly as needed pain; see #4 - Bowel regimen on board (4) Opioid dependence in remission: Plan: H/o dependence - Being managed with Suboxone 3 times daily; takes as prescribed - Advise caution with escalation of pain management but ultimately at discretion of surgical team (5) CAD (coronary artery disease): Plan: Most recent cardiology visit 01/30/2024 for clearance; has been ~ 3 years between this visit and most recent - Currently asymptomatic without chest pain or palpitations - Preop EKG sinus w/ 1st degree block - Nuclear stress test 04/2023- negative for ischemia, small area of small intensity fixed defect basal to mid inferior lateral wall, distal anterior septal wall (possible attenuation or prior infarct) - Echo 07/2023- normal LV size, motion, systolic function, EF 55 to 59%, AV sclerosis without stenosis, mild TR - Continue ASA 325 mg daily (6) Depression with anxiety: Plan: H/o MDD + anxiety; follows with PCP for managemment - Stable, per patient - Continue on the duloxetine 150 mg nightly, trazodone 150 mg p.o. at bedtime (7) Hypertension: Plan: Stable, per patient - BP stable today - Continue metoprolol 50 mg p.o. twice daily (8) Neurocognitive disorder: Plan: Per patient - Continue Memantine 10mg BID + Rivastigmine 1.5 mg BID Plan Ordered 2 step and home O2 script signed HLD - atorvastatin 40 mg nightly GERD - omeprazole 20 mg twice daily BPH - tamsulosin 0.4 mg nightly Torsemide 20mg every morning CODE STATUS: Ful code Admission and Anticipated Discharge Date Admission Date: February 05, 2024 Supervising Physician Co-Signing Physician Notes The patient was not seen by me. The chart was reviewed. Case discussed with ORTEGA Valentin. Agree with assessment and plan Subjective Patient seen and evaluated at bedside. He reports feeling well post-op and is eager to be discharged home. He notes his pain is well-controlled with medication. He reports chronic shortness of breath, but denies any acute ex acerbations. He denies difficulty swallowing, headache, chest pain, new respiratory symptoms. Physical Exam Physical Exam: General: No acute distress, nondiaphoretic, well-developed, well-nourished. Wearing neck brace. Skin: The skin was warm and dry, without rashes, erythema, edema, or bruising. GUALBERTO draining and dressing clean, dry, intact. Cardiac: Regular rate and rhythm. Systolic murmur appreciated. Pulm: Clear to auscultation bilaterally without wheezes, rales or rhonchi. No respiratory distress. 95% on 2 L. Abdominal: Soft, nontender, nondistended. Bowel sounds present. Neuro: A&O x3. No focal neurological deficits. Sensation intact to light touch bilaterally. Strength 5/5 bilaterally. Results & Data Results & Data Vital Signs (Past 12 Hours) Vital Signs Temp Pulse Pulse Resp BP Pulse Ox O2 Del Method 02/06/24 07:20 97.5 F L 94 H 20 102/68 95 Nasal Cannula 02/06/24 07:12 98 H 16 96 Nasal Cannula 02/06/24 05:23 97.7 F 81 16 101/59 L 95 Nasal Cannula 02/06/24 03:28 97.7 F 91 H 20 99/55 L 95 Nasal Cannula 02/06/24 03:00 90 16 95 Nasal Cannula 02/06/24 01:29 97.7 F 87 18 105/63 94 Nasal Cannula 02/05/24 23:20 97.9 F 94 H 18 106/72 95 Nasal Cannula 02/05/24 23:10 93 H 16 90 Nasal Cannula 02/05/24 21:17 97.7 F 90 22 112/74 93 Nasal Cannula O2 Flow Rate 02/06/24 07:20 2 02/06/24 07:12 2 02/06/24 05:23 2 02/06/24 03:28 2 02/06/24 03:00 2 02/06/24 01:29 2 02/05/24 23:20 2 02/05/24 23:10 2 02/05/24 21:17 2 Laboratory Results Reviewed CBC Reviewed BMP PG Care Time/CCT Total # of Minutes Spent Total Time Spent with Patient: Total time spent is greater than 50% in coordination of care (as documented) at patient's floor/unit and/or counseling patient: Coding Level of Care Code 55050 SUB INP/OBS CARE 3/50MIN Diagnoses Herniation of cervical intervertebral disc with radiculopathy M50.10 COPD (chronic obstructive pulmonary disease) J44.9 Chronic pain G89.29 Opioid dependence in remission F11.21 CAD (coronary artery disease) I25.10 Depression with anxiety F41.8 Hypertension I10 Neurocognitive disorder R41.9
[2024-02-06] MEDS: FLUTICASONE/VILANTEROL 200/25MCG 14 PUFFS/INHALER INH SCH (08:36)
[2024-02-06] MEDS ORDERED: FUROSEMIDE 20 MG TAB PO SCH (09:00)
[2024-02-06] MEDS ORDERED: NON-FORMULARY MEDICATION (Lutein 1 TAB) PO SCH (09:00)
--- NOTE | 2024-02-06 10:15 | Discharge Summary ---
Date of Service February 06, 2024 Admission HPI Per Admitting Provider This is a 68-year-old male who presents with chronic persistent neck and arm pain and failing course of nonoperative care is here for surgical invention. Principal Diagnosis Cervical spinal stenosis with nucleus pulposus and radiculopathy Discharge Data Allergies Allergy/AdvReac Type Severity Reaction Status Date / Time vancomycin Allergy Severe Rash Verified 02/05/24 06:35 Consultations 02/05/24 11:29 Consult Hospitalist Routine Procedures Performed Operation Date: 02/05/24 07:45 Actual Procedures p C4-C5 Anterior Cervical Discectomy Fusion with Spinal Cord Monitoring(Not Applicable) - Gabe Turner DO Ordered Studies 02/05/24 FL cervical 2-3V Routine Hospital Course (1) Herniation of cervical intervertebral disc with radiculopathy: Patient underwent anterior cervical discectomy and fusion tolerated cells taken to orthopedic for postoperative. Postoperatively his pain was controlled. Swallowing well. No hoarseness. GUALBERTO drain decreasing appropriately. Subsidy discharged home. Discharge orders instructions from the chart for further review. Total Time Total Time Spent Total Time Spent (In Minutes): 20 minutes Discharge Plan Discharge Items Patient Disposition: Home - Self-Care Reason For Visit: POSTOP Discharge Diagnosis: Cervical spinal stenosis with radiculopathy Activity: As commented below Non-emergency contact: Primary Care Provider Call non-emergency contact if: you have any medication questions Follow-up/Referrals: William Butts D.O. [Primary Care Provider] - Diet: Regular Addtl Attending Provider Instructions: ACTIVITY RECOMMENDATIONS: SELF CARE INSTRUCTIONS AFTER CERVICAL FUSIONS 1. No smoking. Smoking drastically decreases the chance of a solid fusion. 2. No bending, lifting more than 5 pounds, or twisting (roll like a log when turning in bed). 3. You may shower 3 days after surgery. Thoroughly dry wound. Do not soak in the tub. 4. Cervical collar: Must be worn at all times including sleeping. You may remove the brace only to bath, eat and if you are sitting in a recliner. 5. Please walk as much as you can for exercise. Gradually increase the distance that you walk as your endurance increases. 6. You may return to previous diet. SPECIAL CARE INSTRUCTIONS: VERY IMPORTANT TO READ AND REVIEW A. Do not take any anti-inflammatory medications (i.e. Indocin, Advil, Aspirin, Naprosyn, Aleve, Motrin, etc.) as these may inhibit the chance of a solid fusion. Tylenol is okay to take. B. Your surgical incision has been closed with a cosmetic suture under the skin that will dissolve in about 6 weeks. In 14 days, you can use a pair of clean scissors and cut the suture that is left outside of the skin at the ends of your incision. C. Complications are uncommon, but please contact us if you have any signs or symptoms of: 1. wound infection (fever higher than 102.5 degrees F, redness, separation of wound, drainage, or increasing pain from the incision) 2. blood clots in legs (pain, swelling, redness and warmth in legs) 3. urinary tract infection (fever higher than 102.5 degrees, burning upon urination or increased frequency of urination) 4. nerve problems (inability to walk on your toes or heels, numbness, loss of bowel or bladder control) 5. any other symptoms that concern you. D. Please call the office at if you have any concerns or questions about your operation or recovery. MANAGING PAIN AFTER SPINAL SURGERY 1. Narcotic medication is intended for short-term use and will be provided for surgical pain. Surgical pain usually lasts for a period of 4-6 weeks. Narcotic medication includes Percocet, Vicodin, Darvocet, Tylenol #3 or Lortab. 2. Longer-term pain is more appropriately treated with non-narcotic medication such as Tylenol ES. 3. Muscle spasm is not appropriately treated with narcotics. Muscle relaxers such as Soma, Flexeril or Skelaxin can be used along with Tylenol ES. 4. Remember that we all live with some "aches and pains". This is not unusual or uncommon after an injury or as we get older. 5. We will provide appropriate medication within the normal guidelines of their prescribed use. We will also be very cautious and aware of potential abuse and extended duration of patients' medication needs. 6. Please allow 2-3 days to process refills. Prescriptions will not be mailed but must be picked up at the office. FOLLOW UP VISIT: Keep your scheduled follow-up appointment. Any questions, please call the office at . Pending Studies at Discharge: No Stand-Alone Forms: My [facility], Smoking Cessation Medications and DC Order Prescriptions: New oxycodone 5 mg tablet 5 mg PO Q6H PRN (Reason: pain) Qty: 20 0RF Continued pregabalin 50 mg capsule 100 mg PO HS trazodone 50 mg tablet 150 mg PO HS venlafaxine [Effexor XR] 150 mg capsule,extended release 24hr 150 mg PO QPM metoprolol tartrate 50 mg tablet 50 mg PO BID torsemide [Soaanz] 20 mg tablet 20 mg PO DAILY memantine 10 mg tablet 10 mg PO BID omeprazole 20 mg capsule,delayed release(DR/EC) 20 mg PO BID tamsulosin 0.4 mg capsule 0.4 mg PO QPM furosemide 20 mg tablet 20 mg PO QAM duloxetine [Cymbalta] 60 mg capsule,delayed release(DR/EC) 60 mg PO BID rivastigmine tartrate 1.5 mg capsule 1.5 mg PO BID doxycycline hyclate [Vibramycin] 100 mg capsule 100 mg PO BID Rx Instructions: 1 cap BID for 6 months modafinil 200 mg tablet 200 mg PO BID (DME) Oxygen Home Liters Per Minute See Rx Instructions .Route Rx Instructions: 2 liter HS ipratropium-albuterol 0.5 mg-3 mg(2.5 mg base)/3 mL solution for nebulization 3 ml inhalation Q6H PRN (Reason: prn) ascorbic acid (vitamin C) 500 mg capsule 500 mg PO BID Proair Digihaler 90 mcg/actuation aero powdr breath act w/sensor 2 inh inhalation Q6H PRN (Reason: shortness of breath) fluticasone furoate-vilanterol [Breo Ellipta] 200-25 mcg/dose blister with device 1 inh inhalation DAILY pregabalin [Lyrica] 100 mg capsule 100 mg PO TID buprenorphine-naloxone 8-2 mg tablet, sublingual 1 tab sublingual TID atorvastatin [Lipitor] 40 mg tablet 40 mg PO QPM calcium carbonate-vitamin D3 600 mg-5 mcg (200 unit) capsule 1 cap PO QAM aspirin 325 mg Tablet 325 mg PO QAM potassium chloride 20 mEq Tablet,Er Particles/Crystals 20 meq PO BID zinc 50 mg Tablet 50 mg PO 3XWK lutein 1 tab PO QAM Discharge Orders: Discharge Order (Routine); Ordered 02/06/24 Ordered By: Gabe Turner Admission Data Admit Date/Time: 02/05/24 09:48 Attending Provider: Gabe Turner Admit Provider: Gabe Turner Primary Care Provider: William Butts Other Providers: Clint Soria
[2024-02-06 11:54] VITALS: BP 108/66; PULSE 84; RESP 20; TEMP 97.5; O2SAT 91
[2024-02-06] MEDS: CALCIUM 600MG + VIT D 400 IU TAB PO SCH (11:55)
== END 2024-02-06 13:04 | disposition home or self-care (01) | DRG 29 ==
LOC: ASU 06:08 → 3E 09:48